=== PATIENT | male | born 1965 | race Two or more races ===

== ENCOUNTER 2021-01-11 20:53 | Emergency (ER) | payer MEDICAID, OTHER ==
[~2021-01-11] VITALS: Ht 172.7 cm; Wt 86.2 kg
[2021-01-11 23:12] LABS: Alanine Aminotransferase 27 U/L (16-61); Albumin 2.7 g/dL (3.4-5.0); Anion Gap 9 (5-15); Aspartate Aminotransferase 15 U/L (15-37); BUN/Creatinine Ratio 28.7; Blood Urea Nitrogen 39 mg/dL (7-18); Calcium 7.9 mg/dL (8.5-10.1); Carbon Dioxide 18 mmol/L (21-32); Chloride 108 mmol/L (98-107); GFR African American 70 mL/min; GFR Non-African American 58 mL/min; Glucose 180 mg/dL (74-106); Potassium 5.3 mmol/L (3.5-5.1); Sodium 135 mmol/L (136-145)
[2021-01-11 23:17] LABS: Alkaline Phosphatase 147 U/L (45-117); Bilirubin, Total 0.1 mg/dL (0.2-1.0); Total Protein 7.6 g/dL (6.4-8.2)
[2021-01-11] MEDS ORDERED: PIPERACILLIN-TAZOB 3.375GM 100 ML IV ONE (23:30)
[2021-01-11 23:39] LABS: Basophils # (auto) 0.1 10 ^3/uL (0-0.2); Basophils % (auto) 0.4 % (0.0-2.0); Eosinophils # (auto) 0.5 10 ^3/uL (0-0.8); Hemoglobin 11.7 g/dL (13.5-17.5); Lymphocytes # (auto) 1.9 10 ^3/uL (0.4-5.4)
[2021-01-11 23:41] LABS: Eosinophils % (auto) 2.7 % (0.0-7.0); Hematocrit 35.4 % (41.0-53.0); Lymphocytes % (auto) 10.9 % (10.0-50.0); Mean Corpuscular Hemoglobin 32.1 pg (28.0-32.0); Mean Corpuscular Volume 97.2 fL (80.0-100.0); Monocytes # (auto) 1.1 10 ^3/uL (0-1.3); Monocytes % (auto) 6.7 % (0.0-12.0); Neutrophils # (auto) 13.6 10 ^3/uL (1.6-8.6); Neutrophils % (auto) 79.3 % (37.0-80.0); Platelet Count (auto) 466 10^3/uL (140-450); Red Blood Cells 3.64 10^6/uL (4.5-5.90); Red Cell Distribution Width 14.2 % (11.8-14.3); White Blood Cell 17.2 10^3/uL (4.4-10.8)
[2021-01-12] MEDS ORDERED: IOHEXOL 350 MG/ML 100ML IJ ONE (02:20)
[2021-01-12] MEDS ORDERED: ACETAMINOPHEN 325 MG TAB PO PRN ×2 (03:45)
[2021-01-12] MEDS ORDERED: DEXTROSE (50%) 50ML SYRG IV PRN (03:45)
[2021-01-12] MEDS ORDERED: MORPHINE SULFATE 4 MG/ML SYR/VIAL IV PRN (03:45)
[2021-01-12] MEDS ORDERED: MORPHINE SULF INJ 2 MG/ML SYRINGE 1ML IV PRN (03:45)
[2021-01-12] MEDS ORDERED: DOCUSATE SOD 100 MG CAP PO PRN (03:45)
[2021-01-12] MEDS ORDERED: ONDANSETRON HCL 4 MG/2 ML VIAL IV PRN (03:45)
[2021-01-12] MEDS ORDERED: VANCOMYCIN PER PHARMACY 0 MG IV SCH (03:45)
[2021-01-12] MEDS ORDERED: NITROGLYCERIN 0.4 MG SL TAB SL PRN (03:45)
[2021-01-12] MEDS ORDERED: SODIUM CHLORIDE 0.9% 1,000 ML IV SCH (03:45)
[2021-01-12] MEDS ORDERED: VANCOMYCIN 1GM/250ML 250 ML IV ONE (04:00)
[2021-01-12] MEDS ORDERED: hydrALAZINE HCL 20 MG/ML VL IV PRN (04:15)
[2021-01-12 06:01] LABS: Urine Bacteria FEW /hpf (None Seen); Urine Blood Negative /uL (Negative); Urine Specific Gravity 1.038 (1.001-1.035); Urine WBC 1 /hpf (0 - 3)
[2021-01-12] MEDS ORDERED: ACCU-CHEK COMFORT CURVE STRIP VI SCH (07:00)
[2021-01-12] MEDS ORDERED: InsuLIN REG 1unit/0.01ml Soln (100units/ml) SC SCH ×2 (07:00→22:00)
[2021-01-12 07:16] LABS: Basophils # (auto) 0 10 ^3/uL (0-0.2); Basophils % (auto) 0.3 % (0.0-2.0); Eosinophils # (auto) 0.5 10 ^3/uL (0-0.8); Eosinophils % (auto) 3.6 % (0.0-7.0); Hematocrit 31.3 % (41.0-53.0); Hemoglobin 10.5 g/dL (13.5-17.5); Lymphocytes # (auto) 2.4 10 ^3/uL (0.4-5.4); Mean Corpuscular Hemoglobin 31.7 pg (28.0-32.0); Mean Corpuscular Hgb Conc. 33.4 g/dL (32.0-36.0); Mean Corpuscular Volume 94.9 fL (80.0-100.0); Monocytes # (auto) 0.8 10 ^3/uL (0-1.3); Monocytes % (auto) 6.6 % (0.0-12.0); Neutrophils % (auto) 70.5 % (37.0-80.0); Platelet Count (auto) 393 10^3/uL (140-450); Red Cell Distribution Width 13.5 % (11.8-14.3); White Blood Cell 12.8 10^3/uL (4.4-10.8)
[2021-01-12 07:32] LABS: Albumin 2.5 g/dL (3.4-5.0); Calcium 8.2 mg/dL (8.5-10.1); Potassium 4.9 mmol/L (3.5-5.1)
[2021-01-12 07:37] LABS: BUN/Creatinine Ratio 29.3; Bilirubin, Total 0.2 mg/dL (0.2-1.0)
[2021-01-12] MEDS ORDERED: amLODIPine BESYLATE 5 MG TAB PO SCH (10:00)
[2021-01-12] MEDS ORDERED: MULTIPLE VITAMIN TAB PO SCH (10:00)
[2021-01-12] MEDS ORDERED: FAMOTIDINE 20 MG TAB PO SCH (10:00)
[2021-01-12] MEDS ORDERED: HEPARIN SODIUM (PORCINE) 5000 UNITS/ML 1ML VIAL SC SCH (10:00)
[2021-01-12] MEDS ORDERED: ASPirin 81 mg TAB PO SCH (10:00)
[2021-01-12] MEDS ORDERED: ASCORBIC ACID 500 MG TAB PO SCH (10:00)
[2021-01-12] MEDS ORDERED: ZINC SULFATE 220mg CAP or TAB PO SCH (10:00)
[2021-01-12 10:04] VITALS: BP 139/75
[2021-01-12] MEDS ORDERED: VANCOMYCIN 1GM/250ML 250 ML IV SCH (20:00)
== END 2021-01-12 10:35 | disposition designated cancer center or children's hospital (05) ==
LOC: ER 20:54 → UNDOADMIN 20:55 → TELE 20:55 → ER 01-12 10:35
DX: E11.621 Type 2 diabetes mellitus with foot ulcer (principal); L97.528 Non-pressure chronic ulcer of other part of left foot with other specified severity; I10 Essential (primary) hypertension; Z20.822 Contact with and (suspected) exposure to COVID-19
CPT/HCPCS: 36415; 73630; 73706; 80053; 80061; 81001; 82962; 83036; 83605; 84484; 85025; 85652; 86141; 87040; 87426; 93925; 96365; 96367; 96375; 99285; C9803; J0360; J2543; J3370; J7030; Q9967; U0003